=== PATIENT | female | born 1985 | race Caucasian/White ===

== ENCOUNTER 2017-04-05 00:03 | Inpatient (IN) | payer BC ==
[2017-04-05] MEDS ORDERED: Lactated Ringers 1,000 ML ONE (01:59)
[2017-04-05] MEDS: Lactated Ringers 1,000 ML IV SCH ×2 (02:00→07:50)
[2017-04-05] MEDS ORDERED: Acetaminophen 325 MG Tab PO PRN ×2 (02:45→07:43)
[2017-04-05] MEDS ORDERED: Sodium Chloride 0.9% 10 ML Syringe FLUSH PRN (02:45)
[2017-04-05] MEDS ORDERED: Ondansetron 4 MG/2 ML SDV IVPUSH PRN (02:45)
[2017-04-05] MEDS ORDERED: Oxytocin/Lactated Ringers 10 UNIT/1,000 ML BAG IV SCH ×3 (02:45→07:45)
--- NOTE | 2017-04-05 03:03 | PCM.LDHP ---
L&D History of Present Illness - General Date of Service: 04/05/17 Admit Problem/Dx: Patient Status Order with Admit Dx/Problem 04/05/17 02:45 Patient Status [ADT] Routine Admission Diagnosis/Problem Admission Diagnosis/Problem Spontaneous rupture of amniotic membranes Source of Information: Patient History Limitations: Reports: No Limitations - History of Present Illness Introduction:: Negar Galindo is a 32-year-old at 36 weeks 4 days by LMP consistent with 15 week ultrasound who was transferred from [facility] in [place] for higher acuity care for level II nursery after delivery. Patient was transferred secondary to chorioamnionitis was diagnosed with maternal fever of 101 Fahrenheit with tachycardia to the 180s and mild fundal tenderness. Patient reports that she had small leakage of fluid at approximately 1730 on 04/04/2017 and it continued over the next hour and was enough to soak a pad. She went into the labor and delivery and had an Amnisure test that was positive. While being monitored for labor she was noted to have the above fever and findings. Prior to the fever in the hospital she denies any fevers or chills. He denies any nausea or vomiting. Denies any abdominal pain except for occasional contractions. She reports that she started have some contractions after her water broke but they were irregular and very mild in nature. Reported good movement. Denies any vaginal bleeding. Timing/Duration: Reports: intermittent (Every 2-6 minutes) Severity: Mild Associated Symptoms: Reports: vaginal fluid. Denies: vaginal bleeding Present Illness Comments:: Negar Galindo is a 32-year-old at 36 weeks 4 days by LMP consistent with 15 week ultrasound. She has had a routine care since [address] Taveras in [place]. Her first was complicated by chorioamnionitis. Initial labs show O+ blood type with negative antibody screen. CBC on 10/26/2016 showed hemoglobin of 14.1 and platelets of 300. Urine culture was negative. Hepatitis B surface antigen was nonreactive, HIV nonreactive, RPR nonreactive and rubella immune. TSH was 0.049 and free T4 was 1.05 She is negative for gonorrhea and chlamydia. Her 1 hour glucose test was 183 with three-hour values of fasting 88, 1 hour 169, two-hour 178 and 3 hour 128. Hemoglobin was 12.7 on 03/22/2017. Platelets were 270 on 2016. She is GBS unknown as she was scheduled to have this done at her appointment scheduled for today, 04/05/2017. anatomy scan was normal on except for a marginal placenta that was resolved on follow-up exam done on 01/11/2017. - Related Data Allergies/Adverse Reactions: Allergies Allergy/AdvReac Type Severity Reaction Status Date / Time Iodinated Contrast- Oral and Allergy Hives Verified 04/05/17 03:12 IV Dye Past Medical History : 2 Para: 1 (Last delivery was complicated by chorioamnionitis) LMP (Approximate): Other (See Below) (07/23/16) - Past Surgical History GI Surgical History: Reports: Hernia Repair/Other (Umbilical hernia repair) Social & Family History - Family History Cardiac: Reports: Hypertension (Maternal grandmother) : Reports: Other (See Below) (Kidney failure in mother) Endocrine/Metabolic: Reports: Diabetes, type II (Maternal grandmother) H&P Review of Systems - Review of Systems: Review Of Systems: See Below General: Denies: Fever, Chills HEENT: Denies: Headaches, Post Nasal Drip, Sinus Congestion, Sore Throat, Visual Changes Pulmonary: Denies: Shortness of Breath, Wheezing, Cough Cardiovascular: Denies: Chest Pain, Palpitations Gastrointestinal: Denies: Abdominal Pain, Constipation, Diarrhea, Nausea, Vomiting Genitourinary: Denies: Dysuria, Frequency, Burning, Pain, Urgency Musculoskeletal: Denies: Back Pain, Joint Swelling, Muscle Pain Skin: Reports: Lesions (Exposed umbilical hernia mesh covered with dressing). Denies: Rash Psychiatric: Denies: Depression, Anxiety Neurological: Denies: Headache Hematologic/Lymphatic: Denies: Anemia, Easy Bleeding, Easy Bruising L&D Exam - Exam Exam: See Below - Vital Signs Vital Signs: Blood pressure 119/78 heart rate 97 respiratory rate 14 temperature 98.9 Fahrenheit Weight: 80 kg - OB Specific Contraction Duration (sec): 45-60 Contraction Frequency (min): 2-4 Contraction Intensity: Mild to Moderate Movement: Active Heart Tones: Present Heart Tones per Min: 135 (Positive accelerations, no decelerations) Heart Rate (FHR) Variability: Moderate (6-25 bmp) Presentation: Vertex Estimated Weight: 6.5 pounds by Gary's - Hernandez Score Hernandez Score Cervix Position: Midposition Hernandez Score Consistency: Soft Hernandez Score Effacement: 0-30% Hernandez Score Dilation: 3-4 cm (4 cm) Hernandez Score Infant's Station: -3 Hernandez Score Total: 5 - Exam General: Alert, Oriented HEENT: EOMI Neck: Supple, Trachea Midline Lungs: Clear to Auscultation Cardiovascular: Regular Rate, Regular Rhythm GI/Abdominal Exam: Soft, Non-Tender Genitourinary: Normal external exam Back Exam: Normal Inspection. No: CVA Tenderness (L), CVA Tenderness (R) Extremities: Normal Inspection, No Pedal Edema Skin: Warm, Dry, Wound (Umbilical mesh exposure covered with dressing otherwise intact) Psychiatric: Alert, Normal Affect, Normal Mood - Problem List (1) 36 weeks gestation of SNOMED Code(s): 11770431 ICD Code: Z3A.36 - 36 WEEKS GESTATION OF Status: Acute Current Visit: Yes (2) premature rupture of membranes SNOMED Code(s): 857490712 ICD Code: O42.919 - PRETRM JESUS ROM, UNSP TIME BETW RUPT AND ONST LABR, UNSP TRI Status: Acute Current Visit: Yes (3) Chorioamnionitis SNOMED Code(s): 80544092 ICD Code: O41.1290 - CHORIOAMNIONITIS, UNSP TRIMESTER, NOT APPLICABLE OR UNSP Status: Acute Current Visit: Yes Problem List Initiated/Reviewed/Updated: Yes Orders Last 24hrs: Active Orders 24 hr Category Date Time Status Patient Status [ADT] Routine ADT 04/05/17 02:45 Ordered Activity as Tolerated [RC] PFP Care 04/05/17 02:45 Ordered Communication Order [RC] ASDIRECTED Care 04/05/17 02:45 Ordered Heart Tones [RC] ASDIRECTED Care 04/05/17 02:46 Ordered Notify Provider Vital Signs [RC] PRN Care 04/05/17 02:48 Ordered Notify Provider [RC] PFP Care 04/05/17 02:45 Ordered Notify Provider [RC] PRN Care 04/05/17 02:45 Ordered Peripheral IV Care [RC] . DIRECTED Care 04/05/17 02:46 Ordered Pump Management, Intrathecal [RC] ASDIRECTED Care 04/05/17 02:48 Ordered Urinary Catheter Assessment [RC] ASDIRECTED Care 04/05/17 02:45 Ordered Vital Signs [RC] PER UNIT ROUTINE Care 04/05/17 02:45 Ordered Nothing Per Oral Diet [DIET] Diet 04/05/17 Breakfast Ordered BLOOD BANK HOLD SPECIMEN [BBK] Routine Lab 04/05/17 02:45 Ordered CBC W/O DIFF,HEMOGRAM [HEME] Routine Lab 04/05/17 02:45 Ordered Acetaminophen [Tylenol] Med 04/05/17 02:45 Ordered 650 mg PO Q6H PRN Ampicillin 2 gm Med 04/05/17 06:00 Ordered Sodium Chloride 0.9% [Normal Saline] 100 ml IV Q6H Gentamicin 400 mg Med 04/06/17 01:00 Ordered Sodium Chloride 0.9% [Normal Saline] 100 ml IV DAILY Lactated Ringers [Ringers, Lactated] 1,000 ml Med 04/05/17 02:45 Ordered IV ASDIRECTED Ondansetron [Zofran] Med 04/05/17 02:45 Ordered 4 mg IVPUSH Q4H PRN Oxytocin/Lactated Ringers [Pitocin in LR 10 Units/1,000 Med 04/05/17 02:45 Ordered ML] 10 unit in 1,000 ml IV .CONTINUOUS Oxytocin/Lactated Ringers [Pitocin in LR 10 Units/1,000 Med 04/05/17 02:45 Ordered ML] 10 unit in 1,000 ml IV TITRATE Sodium Chloride 0.9% [Saline Flush] Med 04/05/17 02:45 Ordered 10 ml FLUSH ASDIRECTED PRN Electronic Heart Tones Ext w TOCO [WOMSER] Oth 04/05/17 02:45 Ordered Routine Electronic Heart Tones Internal [WOMSER] Per Unit Oth 04/05/17 02:45 Ordered Routine Peripheral IV Insertion Adult [OM.PC] Routine Oth 04/05/17 02:45 Ordered Resuscitation Status Routine Resus Stat 04/05/17 02:45 Ordered Assessment/Plan Comment:: 32-year-old at 36 weeks 4 days with PPROM and suspected chorioamnionitis * Patient with cervical dilation from 2-4 cm and brought out over the course of 2 hours. Will augment labor to facilitate more regular contraction pattern as she is currently armando every 2-4 minutes. * Continue lactated Ringer's for a total fluid infusion rate of 125 mL/h * Continue ampicillin 2 g IV every 6 hours with next dose scheduled at 0600 on 04/05/2017, continue gentamicin 5 mg/kg (400 mg) IV every 24 hours with next dose scheduled for 0100 on 04/06/2017 * Continuous monitoring * Patient may have epidural as desired * CBC and hold type and screen for labs * Mom plans to breast-feed * Anticipate vaginal delivery unless otherwise indicated
[2017-04-05] MEDS ORDERED: Ampicillin 2 GM in Sodium Chloride 0.9% 100 ML IV SCH ×2 (04:00→06:00)
[2017-04-05] MEDS ORDERED: fentaNYL 100 MCG/2 ML SDV EPIDUR PRN (04:42)
[2017-04-05] MEDS ORDERED: diphenhydrAMINE 50 MG/ML SDV IVPUSH PRN (04:42)
[2017-04-05] MEDS ORDERED: Bupivacaine/fentaNYL/NS 100 ML Bag EPIDUR SCH (04:45)
--- NOTE | 2017-04-05 05:54 | PCM.PREANE ---
Preanesthetic Assessment - Anesthesia/Transfusion/Family Hx Anesthesia History: Prior Anesthesia Without Reaction Family History of Anesthesia Reaction: No Transfusion History: No Prior Transfusion(s) Intubation History: Unknown - Review of Systems General: No Symptoms Pulmonary: No Symptoms Cardiovascular: No Symptoms Gastrointestinal: Other (Occasional Heart Burn) Neurological: No Symptoms Other: Reports: None - Physical Assessment Respiratory Rate: 14 Vital Signs: Last Vital Signs Temp 37.2 C 04/05/17 01:45 Pulse 97 04/05/17 01:45 Resp 14 04/05/17 01:45 BP 131/75 04/05/17 01:45 Pulse Ox Height: 1.63 m Weight: 80 kg ASA Class: 2 Mental Status: Alert & Oriented x3 Airway Class: Mallampati = 1 Dentition: Reports: Normal Dentition Thyro-Mental Finger Breadths: 3 Mouth Opening Finger Breadths: 3 ROM/Head Extension: Full Lungs: Clear to Auscultation, Normal Respiratory Effort Cardiovascular: Regular Rate, Regular Rhythm - Lab Values: Laboratory Last Values WBC 14.78 K/mm3 (3.98-10.04) H 04/05/17 03:08 RBC 3.93 M/mm3 (3.98-5.22) L 04/05/17 03:08 Hgb 11.7 gm/L (11.2-15.7) 04/05/17 03:08 Hct 34.2 % (34.1-44.9) 04/05/17 03:08 MCV 87.0 fl (79.4-94.8) 04/05/17 03:08 MCH 29.8 pg (25.6-32.2) 04/05/17 03:08 MCHC 34.2 g/dl (32.2-35.5) 04/05/17 03:08 RDW Std Deviation 39.6 fL (36.4-46.3) 04/05/17 03:08 Plt Count 249 K/mm3 (182-369) 04/05/17 03:08 MPV 10.9 fl (9.4-12.3) 04/05/17 03:08 - Allergies Allergies/Adverse Reactions: Allergies Allergy/AdvReac Type Severity Reaction Status Date / Time Iodinated Contrast- Oral and Allergy Hives Verified 04/05/17 03:12 IV Dye - Acknowledgements Anesthesia Type Planned: Epidural Pt an Appropriate Candidate for the Planned Anesthesia: Yes Alternatives and Risks of Anesthesia Discussed w Pt/Guardian: Yes Pt/Guardian Understands and Agrees with Anesthesia Plan: Yes PreAnesthesia Questionnaire 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 History: Reports: - Past Surgical History GI Surgical History: Reports: Hernia Repair/Other (Umbilical hernia repair) - History Comment History Comment: Vitamins - CURRENT (IN HOUSE) MEDS Current Meds: Current Medications Acetaminophen (Tylenol) 650 mg PO Q6H PRN PRN Reason: Pain (Mild 1-3) and fever Diphenhydramine HCl (Benadryl) 25 mg IVPUSH Q6H PRN PRN Reason: Pruritis Fentanyl (Sublimaze) 100 mcg EPIDUR ONETIME PRN PRN Reason: Pain Last Admin: 04/05/17 05:32 Dose: 100 mcg Fentanyl/Bupivacaine HCl (Fentanyl/Bupivacaine/Ns 2 Mcg-0.125% 100 Ml) 100 ml EPIDUR ASDIRECTED SHAYY Last Admin: 04/05/17 05:32 Dose: 100 ml Gentamicin Sulfate 400 mg/ (Sodium Chloride) 110 mls @ 200 mls/hr IV DAILY SHAYY Lactated Ringer's (Ringers, Lactated) 1,000 mls @ 100 mls/hr IV ASDIRECTED SHAYY Last Admin: 04/05/17 02:00 Dose: 100 mls/hr Oxytocin/Lactated Ringer's (Pitocin In Lr 10 Units/1,000 Ml) 10 unit in 1,000 mls @ 100 mls/hr IV .CONTINUOUS SHAYY Oxytocin/Lactated Ringer's (Pitocin In Lr 10 Units/1,000 Ml) 10 unit in 1,000 mls @ 12 mls/hr IV TITRATE SHAYY; 2 MUNITS/MIN PRN Reason: Protocol Last Admin: 04/05/17 03:42 Dose: 2 munits/min, 12 mls/hr Ampicillin Sodium 2 gm/ Sodium (Chloride) 100 mls @ 200 mls/hr IV Q4H SHAYY Last Admin: 04/05/17 04:03 Dose: 200 mls/hr Ondansetron HCl (Zofran) 4 mg IVPUSH Q4H PRN PRN Reason: Nausea/Vomiting Sodium Chloride (Saline Flush) 10 ml FLUSH ASDIRECTED PRN PRN Reason: Keep Vein Open Discontinued Medications Lactated Ringer's (Ringers, Lactated) Confirm Administered Dose 1,000 mls @ as directed .ROUTE .STK-MED ONE Stop: 04/05/17 02:00 Last Admin: 04/05/17 03:43 Dose: Not Given Ampicillin Sodium 2 gm/ Sodium (Chloride) 100 mls @ 200 mls/hr IV Q6H SHAYY
[2017-04-05] MEDS ORDERED: Docusate Sodium 100 MG Cap PO PRN (07:43)
[2017-04-05] MEDS ORDERED: Magnesium Hydroxide 400 MG/5 ML Susp 30 ML Cup PO PRN (07:43)
[2017-04-05] MEDS ORDERED: Ibuprofen 600 MG Tab PO PRN (07:43)
[2017-04-05] MEDS ORDERED: Lanolin 100% Cream 7 GM Tube TOP PRN (07:43)
[2017-04-05] MEDS ORDERED: Hydrocortisone Acetate 25 MG Supp RECTAL PRN (07:43)
[2017-04-05] MEDS ORDERED: Witch Hazel Medicated Pads 100/Jar TOP PRN (07:43)
[2017-04-05] MEDS ORDERED: Benzocaine/Menthol 20%-0.5% Spray 56 GM Canister TOP PRN (07:43)
[2017-04-05] MEDS ORDERED: Lactated Ringers 1,000 ML IV SCH (07:45)
--- NOTE | 2017-04-05 07:48 | PCM.DEL ---
L & D Note - General Info Date of Service: 04/05/17 Mother's Due Date: 04/29/17 - Delivery Note Labor: Augmented by Oxytocin Delivery Outcome: Livebirth Infant Delivery Method: Spontaneous Vaginal Delivery-Single Presentation: Right Occiput Anterior (ESME) Nuchal Cord: None Prep: Povidone-Iodine (Betadine Anesthesia Type: Epidural Amniotic Fluid Description: Clear Episiotomy Type: None Laceration: 1st Degree, Perineal (Left-sided perineal) Suture type: Vicryl Suture size: 3-0 Placenta: Intact, Spontaneous Cord: 3 Vessels Estimated Blood Loss: 300 Resuscitation Needed: No : Stimulated, Warmed Provider: Halle Taveras Score 1 min: 6 Score 5 min: 8 Second Stage Interventions: Reports: Encouragement Given, Pushing, Feet in Foot Rests Delivery Comments (Free Text/Narrative):: Stage I: Negar Galindo was admitted as a transfer from [facility] in [place] after she was diagnosed with chorioamnionitis with a maternal fever of 101 Fahrenheit and tachycardia to 180 bpm. Prior to transfer she received a 2 g dose of ampicillin IV and gentamicin 400 mg IV. Her cervix prior to transfer was 2 cm dilated. On admission her cervix was dilated to 4 cm. She was GBS unknown but had GBS swab collected in [place]. She was started on Pitocin for augmentation of labor due to diagnosis of chorioamnionitis. She was given second dose of ampicillin 2 g IV. She received an epidural for anesthesia. She progressed complete and pushing. Stage II: On 04/05/2017 she had a normal vaginal delivery of a live female infant at 0703. Apgars of 6 & 8. Weight of 3120 g (6 lbs 14 oz). There was no nuchal cord. was delivered in ESME position. The cord was doubly clamped and cut by father of . Infant was placed on mother's abdomen. Stage III: She had a spontaneous delivery of an intact placenta in [place] presentation. Three vessel cord. She was given pitocin and fundal massage. She had a first degree left perineal laceration that was repaired with 3-0 Vicryl. Mom and baby were stable to recovery. EBL of 300 mL. Ernie Burk MD 7:48 AM 04/05/2017 - Patient Data Vitals - Most Recent: Last Vital Signs Temp 37.2 C 04/05/17 01:45 Pulse 97 04/05/17 01:45 Resp 14 04/05/17 05:54 BP 131/75 04/05/17 01:45 Pulse Ox Weight - Most Recent: 80 kg Lab Results Last 24 Hours: Laboratory Results - last 24 hr 04/05/17 Range/Units 03:08 WBC 14.78 H (3.98-10.04) K/mm3 RBC 3.93 L (3.98-5.22) M/mm3 Hgb 11.7 (11.2-15.7) gm/L Hct 34.2 (34.1-44.9) % MCV 87.0 (79.4-94.8) fl MCH 29.8 (25.6-32.2) pg MCHC 34.2 (32.2-35.5) g/dl RDW Std Deviation 39.6 (36.4-46.3) fL Plt Count 249 (182-369) K/mm3 MPV 10.9 (9.4-12.3) fl Med Orders - Current: Current Medications Acetaminophen (Tylenol) 650 mg PO Q6H PRN PRN Reason: Pain (Mild 1-3) and fever Diphenhydramine HCl (Benadryl) 25 mg IVPUSH Q6H PRN PRN Reason: Pruritis Fentanyl (Sublimaze) 100 mcg EPIDUR ONETIME PRN PRN Reason: Pain Last Admin: 04/05/17 05:32 Dose: 100 mcg Fentanyl/Bupivacaine HCl (Fentanyl/Bupivacaine/Ns 2 Mcg-0.125% 100 Ml) 100 ml EPIDUR ASDIRECTED [facility] Last Admin: 04/05/17 05:32 Dose: 100 ml Gentamicin Sulfate 400 mg/ (Sodium Chloride) 110 mls @ 200 mls/hr IV DAILY SHAYY Lactated Ringer's (Ringers, Lactated) 1,000 mls @ 100 mls/hr IV ASDIRECTED [facility] Last Admin: 04/05/17 02:00 Dose: 100 mls/hr Oxytocin/Lactated Ringer's (Pitocin In Lr 10 Units/1,000 Ml) 10 unit in 1,000 mls @ 100 mls/hr IV .CONTINUOUS SHAYY Oxytocin/Lactated Ringer's (Pitocin In Lr 10 Units/1,000 Ml) 10 unit in 1,000 mls @ 12 mls/hr IV TITRATE SHAYY; 2 MUNITS/MIN PRN Reason: Protocol Last Titration: 04/05/17 05:52 Dose: 0 munits/min, 0 mls/hr Ampicillin Sodium 2 gm/ Sodium (Chloride) 100 mls @ 200 mls/hr IV Q4H SHAYY Last Admin: 04/05/17 04:03 Dose: 200 mls/hr Ondansetron HCl (Zofran) 4 mg IVPUSH Q4H PRN PRN Reason: Nausea/Vomiting Sodium Chloride (Saline Flush) 10 ml FLUSH ASDIRECTED PRN PRN Reason: Keep Vein Open Discontinued Medications Lactated Ringer's (Ringers, Lactated) Confirm Administered Dose 1,000 mls @ as directed .ROUTE .STK-MED ONE Stop: 04/05/17 02:00 Last Admin: 04/05/17 03:43 Dose: Not Given Ampicillin Sodium 2 gm/ Sodium (Chloride) 100 mls @ 200 mls/hr IV Q6H [facility] - Problem List & Annotations (1) 36 weeks gestation of SNOMED Code(s): 04962193 Code(s): Z3A.36 - 36 WEEKS GESTATION OF Status: Acute Current Visit: Yes (2) premature rupture of membranes SNOMED Code(s): 051109670 Code(s): O42.919 - PRETRM JESUS ROM, UNSP TIME BETW RUPT AND ONST LABR, UNSP TRI Status: Acute Current Visit: Yes (3) Chorioamnionitis SNOMED Code(s): 78508428 Code(s): O41.1290 - CHORIOAMNIONITIS, UNSP TRIMESTER, NOT APPLICABLE OR UNSP Status: Acute Current Visit: Yes (4) delivery SNOMED Code(s): 550273000 Code(s): O60.10X0 - LABOR W DELIVERY, UNSP TRIMESTER, UNSP Status: Acute Current Visit: Yes (5) Vaginal delivery SNOMED Code(s): 576978829 Code(s): O80 - ENCOUNTER FOR FULL-TERM UNCOMPLICATED DELIVERY Status: Acute Current Visit: Yes (6) First degree laceration of perineum during delivery, SNOMED Code(s): 614598299 Code(s): O70.0 - FIRST DEGREE PERINEAL LACERATION DURING DELIVERY Status: Acute Current Visit: Yes - Problem List Review Problem List Initiated/Reviewed/Updated: Yes - My Orders Last 24 Hours: My Active Orders 04/05/17 02:45 Patient Status [ADT] Routine Activity as Tolerated [RC] PFP Communication Order [RC] ASDIRECTED Vital Signs [RC] PER UNIT ROUTINE BLOOD BANK HOLD SPECIMEN [BBK] Routine Acetaminophen [Tylenol] 650 mg PO Q6H PRN Lactated Ringers [Ringers, Lactated] 1,000 ml IV ASDIRECTED Ondansetron [Zofran] 4 mg IVPUSH Q4H PRN Oxytocin/Lactated Ringers [Pitocin in LR 10 Units/1,000 ML] 10 unit in 1,000 ml IV .CONTINUOUS Oxytocin/Lactated Ringers [Pitocin in LR 10 Units/1,000 ML] 10 unit in 1,000 ml IV TITRATE Sodium Chloride 0.9% [Saline Flush] 10 ml FLUSH ASDIRECTED PRN Electronic Heart Tones Ext w TOCO [WOMSER] Routine Electronic Heart Tones Internal [WOMSER] Per Unit Routine Peripheral IV Insertion Adult [OM.PC] Routine Resuscitation Status Routine 04/05/17 02:46 Heart Tones [RC] ASDIRECTED Peripheral IV Care [RC] . DIRECTED 04/05/17 02:48 Notify Provider Vital Signs [RC] PRN Pump Management, Intrathecal [RC] ASDIRECTED 04/05/17 04:00 Ampicillin 2 gm Sodium Chloride 0.9% [Normal Saline] 100 ml IV Q4H 04/05/17 07:30 Patient Status Manage Transfer [TRANSFER] Routine 04/05/17 Breakfast Nothing Per Oral Diet [DIET] 04/06/17 01:00 Gentamicin 400 mg Sodium Chloride 0.9% [Normal Saline] 100 ml IV DAILY - Assessment Assessment:: Mom doing well. Infant transferred to nursery for further assessment and lab work with IV antibiotics. Infant appears to be doing well at this time. - Plan Plan:: 32-year-old status post vaginal delivery at 36 weeks, complicated by PPROM and chorioamnionitis * Patient doing well at this time. * Admit patient to inpatient status post vaginal delivery * Patient started on regular diet * May discontinue IV and IV fluids once patient tolerating regular diet. * Continue to monitor lochia * Continue to monitor vital signs checking for possible signs of endometritis such as fever or maternal tachycardia * Assist with breast-feeding as needed * Anticipate discharge from hospital on day #2 due to status Ernie Burk M.D. 7:52 AM 04/05/2017
[2017-04-05] MEDS: Prenatal Multivitamin with Calcium/Folic Acid/Iron Tab PO SCH (09:41)
[2017-04-05] MEDS ORDERED: Bupivacaine 0.25% 10 ML SDV ONE (22:22)
[2017-04-06] MEDS ORDERED: Gentamicin 400 MG in Sodium Chloride 0.9% 100 ML IV SCH (01:00)
[2017-04-06] MEDS: Prenatal Multivitamin with Calcium/Folic Acid/Iron Tab PO SCH (08:28)
--- NOTE | 2017-04-06 10:28 | PCM.SN ---
- Free Text/Narrative Note: Post Progress Note PPD # 1 Subjective: Doing well overall. Ambulating without difficulty. Lochia minimal and decreasing from previous day. Voiding without difficulty. Tolerating regular diet without any nausea or vomiting. Pain controlled with oral medications. Breast feeding with minimal difficulty. Denies any fevers or chills. Objective: Vitals: Last Vital Signs Temp 36.3 C 04/06/17 04:00 Pulse 86 04/06/17 04:00 Resp 16 04/06/17 04:00 BP 109/61 04/06/17 04:00 Pulse Ox 97 04/06/17 04:00 Physical Exam General: Alert and oriented, no acute distress Lungs: Clear to auscultation bilaterally Heart: Regular rate and rhythm Abdomen: Soft, minimal appropriate tenderness, non-distended, fundus midline, nontender, and below the umbilicus Extremities: Minimal pedal edema GBS swab from [place] per nurse's report: Negative ASSESSMENT: 32-year-old female G 2 P 1102 s/p vaginal delivery PPD #2, complicated by chorioamnionitis and delivery PLAN: Doing well Breast feeding with minimal difficulty. Assist as needed Lochia minimal. Continue to monitor for appropriate lochia. Continue routine care Anticipate discharge home tomorrow Ernie Burk MD 10:28 AM 04/06/2017
--- NOTE | 2017-04-06 13:56 | PCM48HPAN ---
Post Anesthesia Note - EVALUATION WITHIN 48HRS OF ANESTHETIC Vital Signs in Normal Range: Yes Patient Participated in Evaluation: Yes Respiratory Function Stable: Yes Airway Patent: Yes Cardiovascular Function Stable: Yes Hydration Status Stable: Yes Pain Control Satisfactory: Yes Nausea and Vomiting Control Satisfactory: Yes Mental Status Recovered: Yes - COMMENTS/OBSERVATIONS Free Text/Narrative:: Josie feels good today. She has been up walking. Denies headache, back pain, and nubness/tingling in her lower extremities. No further questions at this time.
[2017-04-07] MEDS: Prenatal Multivitamin with Calcium/Folic Acid/Iron Tab PO SCH (08:29)
--- NOTE | 2017-04-07 08:51 | PCM.SN ---
- Free Text/Narrative Note: Post Progress Note PPD # 2 Subjective: Continues to do well overall. Ambulating without difficulty. Lochia minimal and overall unchanged from previous day. Voiding without difficulty. Tolerating regular diet without any nausea or vomiting. Pain minimal and not requiring medications. Breast feeding with minimal difficulty. Denies any fevers or chills. Objective: Vitals: Physical Exam General: Alert and oriented, no acute distress Lungs: Clear to auscultation bilaterally Heart: Regular rate and rhythm Abdomen: Soft, minimal appropriate tenderness, non-distended, dressing in place over expose umbilical mesh, fundus midline, nontender, and below the umbilicus Extremities: Minimal pedal edema GBS swab from [place] per nurse's report: Negative ASSESSMENT: 32-year-old female G 2 P 1102 s/p vaginal delivery PPD #2, complicated by chorioamnionitis and delivery PLAN: Doing well Breast feeding with minimal difficulty. Assist as needed Lochia minimal. Continue to monitor for appropriate lochia. Continue routine care Anticipate discharge home today Ernie Burk MD 8:51 AM 04/07/2017
--- NOTE | 2017-04-07 09:04 | PCM.DCSUM1 ---
Discharge Summary - Hospital Course Free Text/Narrative:: Stage I: Negar Galindo was admitted as a transfer from [facility] in [place] after she was diagnosed with chorioamnionitis with a maternal fever of 101 Fahrenheit and tachycardia to 180 bpm. Prior to transfer she received a 2 g dose of ampicillin IV and gentamicin 400 mg IV. Her cervix prior to transfer was 2 cm dilated. On admission her cervix was dilated to 4 cm. She was GBS unknown but had GBS swab collected in [place]. She was started on Pitocin for augmentation of labor due to diagnosis of chorioamnionitis. She was given second dose of ampicillin 2 g IV. She received an epidural for anesthesia. She progressed complete and pushing. Stage II: On 04/05/2017 she had a normal vaginal delivery of a live female at 0703. Apgars of 6 & 8. Weight of 3120 g (6 lbs 14 oz). There was no nuchal cord. was delivered in ESME position. The cord was doubly clamped and cut by father of infant. was placed on mother's abdomen. Stage III: She had a spontaneous delivery of an intact placenta in Edy presentation. Three vessel cord. She was given pitocin and fundal massage. She had a first degree left perineal laceration that was repaired with 3-0 Vicryl. Mom and baby were stable to recovery. EBL of 300 mL. HPI Initial Comments: Stage I: Negar Galindo was admitted as a transfer from [facility] in [place] after she was diagnosed with chorioamnionitis with a maternal fever of 101 Fahrenheit and tachycardia to 180 bpm. Prior to transfer she received a 2 g dose of ampicillin IV and gentamicin 400 mg IV. Her cervix prior to transfer was 2 cm dilated. On admission her cervix was dilated to 4 cm. She was GBS unknown but had GBS swab collected in [place]. She was started on Pitocin for augmentation of labor due to diagnosis of chorioamnionitis. She was given second dose of ampicillin 2 g IV. She received an epidural for anesthesia. She progressed complete and pushing. Stage II: On 04/05/2017 she had a normal vaginal delivery of a live female infant at 0703. Apgars of 6 & 8. Weight of 3120 g (6 lbs 14 oz). There was no nuchal cord. Infant was delivered in ESME position. The cord was doubly clamped and cut by father of . Infant was placed on mother's abdomen. Stage III: She had a spontaneous delivery of an intact placenta in Edy presentation. Three vessel cord. She was given pitocin and fundal massage. She had a first degree left perineal laceration that was repaired with 3-0 Vicryl. Mom and baby were stable to recovery. EBL of 300 mL. Brief History: Stage I: Negar Galindo was admitted as a transfer from [facility] in [place] after she was diagnosed with chorioamnionitis with a maternal fever of 101 Fahrenheit and tachycardia to 180 bpm. Prior to transfer she received a 2 g dose of ampicillin IV and gentamicin 400 mg IV. Her cervix prior to transfer was 2 cm dilated. On admission her cervix was dilated to 4 cm. She was GBS unknown but had GBS swab collected in [place]. She was started on Pitocin for augmentation of labor due to diagnosis of chorioamnionitis. She was given second dose of ampicillin 2 g IV. She received an epidural for anesthesia. She progressed complete and pushing. Stage II: On 04/05/2017 she had a normal vaginal delivery of a live female at 0703. Apgars of 6 & 8. Weight of 3120 g (6 lbs 14 oz). There was no nuchal cord. was delivered in ESME position. The cord was doubly clamped and cut by father of . was placed on mother's abdomen. Stage III: She had a spontaneous delivery of an intact placenta in Edy presentation. Three vessel cord. She was given pitocin and fundal massage. She had a first degree left perineal laceration that was repaired with 3-0 Vicryl. Mom and baby were stable to recovery. EBL of 300 mL. - Discharge Data Discharge Date: 04/07/17 Discharge Disposition: Home, Self-Care 01 Condition: Good - Discharge Diagnosis/Problem(s) (1) 36 weeks gestation of SNOMED Code(s): 09378873 ICD Code: Z3A.36 - 36 WEEKS GESTATION OF Status: Acute Current Visit: Yes (2) premature rupture of membranes SNOMED Code(s): 849119493 ICD Code: O42.919 - PRETRM JESUS ROM, UNSP TIME BETW RUPT AND ONST LABR, UNSP TRI Status: Acute Current Visit: Yes (3) Chorioamnionitis SNOMED Code(s): 22946663 ICD Code: O41.1290 - CHORIOAMNIONITIS, UNSP TRIMESTER, NOT APPLICABLE OR UNSP Status: Acute Current Visit: Yes (4) delivery SNOMED Code(s): 627860539 ICD Code: O60.10X0 - LABOR W DELIVERY, UNSP TRIMESTER, UNSP Status: Acute Current Visit: Yes (5) Vaginal delivery SNOMED Code(s): 163726655 ICD Code: O80 - ENCOUNTER FOR FULL-TERM UNCOMPLICATED DELIVERY Status: Acute Current Visit: Yes (6) First degree laceration of perineum during delivery, SNOMED Code(s): 320988620 ICD Code: O70.0 - FIRST DEGREE PERINEAL LACERATION DURING DELIVERY Status: Acute Current Visit: Yes - Patient Summary/Data Complications: Chorioamnionitis Consults: None Hospital Course: Stage I: Negar Galindo was admitted as a transfer from [facility] in [place] after she was diagnosed with chorioamnionitis with a maternal fever of 101 Fahrenheit and tachycardia to 180 bpm. Prior to transfer she received a 2 g dose of ampicillin IV and gentamicin 400 mg IV. Her cervix prior to transfer was 2 cm dilated. On admission her cervix was dilated to 4 cm. She was GBS unknown but had GBS swab collected in [place]. She was started on Pitocin for augmentation of labor due to diagnosis of chorioamnionitis. She was given second dose of ampicillin 2 g IV. She received an epidural for anesthesia. She progressed complete and pushing. Stage II: On 04/05/2017 she had a normal vaginal delivery of a live female infant at 0703. Apgars of 6 & 8. Weight of 3120 g (6 lbs 14 oz). There was no nuchal cord. Infant was delivered in ESME position. The cord was doubly clamped and cut by father of infant. was placed on mother's abdomen. Stage III: She had a spontaneous delivery of an intact placenta in Edy presentation. Three vessel cord. She was given pitocin and fundal massage. She had a first degree left perineal laceration that was repaired with 3-0 Vicryl. Mom and baby were stable to recovery. EBL of 300 mL. Patient did well in her period and was meeting all milestones by day #1. She was ambulating without difficulty. Her pain was able to be controlled with minimal amount of oral medications. She was tolerating a regular diet without any nausea or vomiting. She was breast- feeding without difficulty. Her lochia was minimal. In the morning of day 1 results from her group B strep tests were available from [facility] in [place] which resulted as negative. Due to the diagnosis of chorioamnionitis and requiring additional antibiotic medications patient was monitored until day #2. day #2 she continued to be doing well and was meeting all the above milestones. She desired to be discharged home in the morning of day #2. She will follow-up with Dr. Taveras or Dr. Hylton in 6 weeks or earlier as needed. - Patient Instructions Diet: Regular Diet as Tolerated Activity: As Tolerated Activity, Other: Nothing in the vagina for 6 weeks. Driving: May Drive Today Showering/Bathing: May Shower, No Tub Bathing/Swimming Wound/Incision Care: Keep Operative Site/Wound Site Clean and Dry, Change Dressing Daily (Per original provider orders) Notify Provider of: Fever, Increased Pain, Swelling and Redness, Drainage, Nausea and/or Vomiting - Discharge Plan Home Medications: Home Meds Acetaminophen [Tylenol] 650 mg PO Q6H PRN tablet 04/07/17 [Rx] Benzocaine/Menthol [Dermoplast Pain Relief [place]] 1 spray TOP ASDIRECTED PRN canister 04/07/17 [Rx] Docusate Sodium [Colace] 100 mg PO BID PRN cap 04/07/17 [Rx] Hydrocortisone Acetate [Anucort-HC] 25 mg RECTAL BID PRN supp 04/07/17 [Rx] Ibuprofen [IJD: Ibuprofen] 600 mg PO Q6H PRN tablet 04/07/17 [Rx] Lanolin [Lansinoh HPA] 1 applic TOP ASDIRECTED PRN tube 04/07/17 [Rx] Vit with Ca/FA/Iron [ Plus Iron] 1 each PO DAILY tablet [Rx] Fritz Sol[place]el [Tucks] 1 pad TOP ASDIRECTED PRN pad 04/07/17 [Rx] Patient Handouts: Vaginal Delivery, Home Care Instructions for Mom, Vaginal Delivery, Care After, Care After Vaginal Delivery Referrals: Fanny Hylton MD [Consulting Physician] - (Follow-up with Dr. Hylton or Dr. Taveras in 6 weeks or earlier as needed.) Halle Taveras MD [Ordering Only Provider] - - Discharge Summary/Plan Comment DC Time >30 min.: No - Patient Data Vitals - Most Recent: Last Vital Signs Temp 36.3 C 04/07/17 02:07 Pulse 92 04/07/17 02:07 Resp 16 04/07/17 02:07 BP 128/72 04/07/17 02:07 Pulse Ox 97 04/07/17 02:07 Weight - Most Recent: 80 kg Med Orders - Current: Current Medications Acetaminophen (Tylenol) 650 mg PO Q6H PRN PRN Reason: mild pain or fever Benzocaine/Menthol (Dermoplast Pain Relief [place]) 0 gm TOP ASDIRECTED PRN PRN Reason: Perineal Comfort Measure Last Admin: 04/05/17 09:29 Dose: 1 applic Docusate Sodium (Colace) 100 mg PO BID PRN PRN Reason: Constipation Emollient Ointment (Lansinoh Hpa) 0 gm TOP ASDIRECTED PRN PRN Reason: Sore Nipples Hydrocortisone Acetate (Anucort-Hc) 25 mg RECTAL BID PRN PRN Reason: Hemorrhoid pain Lactated Ringer's (Ringers, Lactated) 1,000 mls @ 125 mls/hr IV ASDIRECTED SHAYY Oxytocin/Lactated Ringer's (Pitocin In Lr 10 Units/1,000 Ml) 10 unit in 1,000 mls @ 100 mls/hr IV TITRATE SHAYY PRN Reason: Protocol Ibuprofen (Motrin) 600 mg PO Q6H PRN PRN Reason: Mild pain or fever Magnesium Hydroxide (Milk Of Magnesia) 30 ml PO BEDTIME PRN PRN Reason: Constipation Prenat Multivit/[place]/Iron/Folic Ac ( Plus Iron) 1 each PO DAILY SHAYY Last Admin: 04/07/17 08:29 Dose: 1 each [place] (Tucks) 1 pad TOP ASDIRECTED PRN PRN Reason: Hemorrhoid pain Last Admin: 04/05/17 09:29 Dose: 1 applic Discontinued Medications Acetaminophen (Tylenol) 650 mg PO Q6H PRN PRN Reason: Pain (Mild 1-3) and fever Bupivacaine HCl (Sensorcaine-Mpf 0.25%) 10 ml .ROUTE .STK-MED ONE Stop: 04/05/17 22:23 Diphenhydramine HCl (Benadryl) 25 mg IVPUSH Q6H PRN PRN Reason: Pruritis Fentanyl (Sublimaze) 100 mcg EPIDUR ONETIME PRN PRN Reason: Pain Last Admin: 04/05/17 05:32 Dose: 100 mcg Fentanyl/Bupivacaine HCl (Fentanyl/Bupivacaine/Ns 2 Mcg-0.125% 100 Ml) 100 ml EPIDUR ASDIRECTED SHAYY Last Admin: 04/05/17 05:32 Dose: 100 ml Lactated Ringer's (Ringers, Lactated) Confirm Administered Dose 1,000 mls @ as directed .ROUTE .[facility] ONE Stop: 04/05/17 02:00 Last Admin: 04/05/17 03:43 Dose: Not Given Ampicillin Sodium 2 gm/ Sodium (Chloride) 100 mls @ 200 mls/hr IV Q6H SHAYY Gentamicin Sulfate 400 mg/ (Sodium Chloride) 110 mls @ 200 mls/hr IV DAILY SHAYY Lactated Ringer's (Ringers, Lactated) 1,000 mls @ 100 mls/hr IV ASDIRECTED SHAYY Last Admin: 04/05/17 07:50 Dose: 100 mls/hr Oxytocin/Lactated Ringer's (Pitocin In Lr 10 Units/1,000 Ml) 10 unit in 1,000 mls @ 100 mls/hr IV .CONTINUOUS SHAYY Oxytocin/Lactated Ringer's (Pitocin In Lr 10 Units/1,000 Ml) 10 unit in 1,000 mls @ 12 mls/hr IV TITRATE SHAYY; 2 MUNITS/MIN PRN Reason: Protocol Last Titration: 04/05/17 06:51 Dose: 2 munits/min, 12 mls/hr Ampicillin Sodium 2 gm/ Sodium (Chloride) 100 mls @ 200 mls/hr IV Q4H SHAYY Last Admin: 04/05/17 04:03 Dose: 200 mls/hr Ondansetron HCl (Zofran) 4 mg IVPUSH Q4H PRN PRN Reason: Nausea/Vomiting Sodium Chloride (Saline Flush) 10 ml FLUSH ASDIRECTED PRN PRN Reason: Keep Vein Open *Q Meaningful Use (DIS) - VTE *Q VTE Criteria *Q: - Stroke *Q Stroke Criteria *Q: - AMI *Q AMI Criteria *Q:
== END 2017-04-07 13:10 | disposition home or self-care (01) | DRG 560 ==
LOC: JD.OB 01:29 → OBSVTOIN 07:03 → JD.OB 07:23
PROVIDERS: ADMIT Obstetrics & Gynecology; ATTEND Obstetrics & Gynecology
PROC: 10E0XZZ Delivery of Products of Conception, External Approach (ICD-10-PCS; principal; 2017-04-05)
PROC: 0HQ9XZZ Repair Perineum Skin, External Approach (ICD-10-PCS; 2017-04-05)
PROC: 00HU33Z Insertion of Infusion Device into Spinal Canal, Percutaneous Approach (ICD-10-PCS; 2017-04-05)
PROC: 3E0R3BZ Introduction of Anesthetic Agent into Spinal Canal, Percutaneous Approach (ICD-10-PCS; 2017-04-05)
DX: O41.1230 Chorioamnionitis, third trimester, not applicable or unspecified (principal); O42.013 Preterm premature rupture of membranes, onset of labor within 24 hours of rupture, third trimester; Z3A.37 37 weeks gestation of pregnancy; Z37.0 Single live birth; Z91.041 Radiographic dye allergy status; O70.0 First degree perineal laceration during delivery
CPT/HCPCS: 36415; 59300; 59409; 85027; A9270-GY; J0290; J2590; J3010; J7030; J7120